=== PATIENT | male | born 2000 | race Caucasian/White ===

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

== ENCOUNTER 2020-08-04 07:08 | Emergency (ER) | payer MEDICAID ==
[~2020-08-04] VITALS: Ht 170.2 cm; Wt 77.3 kg
[2020-08-04 07:13] VITALS: BP 129/68
[2020-08-04] MEDS ORDERED: IBUPROFEN 600 MG TABLET PO ONE (07:45)
== END 2020-08-04 08:23 | disposition home or self-care (01) ==
LOC: EMS 07:08
DX: S89.92XA Unspecified injury of left lower leg, initial encounter (principal); F17.210 Nicotine dependence, cigarettes, uncomplicated; X58.XXXA Exposure to other specified factors, initial encounter; Y93.89 Activity, other specified; Y92.89 Other specified places as the place of occurrence of the external cause; Y99.8 Other external cause status
CPT/HCPCS: 29505; 99283

== ENCOUNTER 2020-12-14 11:53 | Emergency (ER) | payer MEDICAID ==
[~2020-12-14] VITALS: Ht 167.6 cm; Wt 90.0 kg
[2020-12-14 12:20] VITALS: BP 122/65
[2020-12-14 14:20] LABS: COVID AG,FIA SOURCE NASOPHARYNGEAL
== END 2020-12-14 15:24 | disposition home or self-care (01) ==
LOC: EMS 11:55
DX: J06.9 Acute upper respiratory infection, unspecified (principal); F17.210 Nicotine dependence, cigarettes, uncomplicated; Z20.822 Contact with and (suspected) exposure to COVID-19
CPT/HCPCS: 71046; 99284

== ENCOUNTER 2021-03-22 08:06 | Emergency (ER) | payer MEDICAID ==
[~2021-03-22] VITALS: Ht 167.6 cm; Wt 72.7 kg
[2021-03-22 08:09] VITALS: BP 141/82
[2021-03-22] MEDS ORDERED: IBUPROFEN 600 MG TABLET PO ONE (08:30)
== END 2021-03-22 09:41 | disposition home or self-care (01) ==
LOC: EMS 08:06
DX: S83.92XA Sprain of unspecified site of left knee, initial encounter (principal); F17.210 Nicotine dependence, cigarettes, uncomplicated; W19.XXXA Unspecified fall, initial encounter; Y93.67 Activity, basketball; Y92.89 Other specified places as the place of occurrence of the external cause; Y99.8 Other external cause status
CPT/HCPCS: 29505; 99283

== ENCOUNTER 2022-08-04 23:33 | Emergency (ER) | payer SELFPAY ==
[~2022-08-04] VITALS: Ht 170.2 cm; Wt 81.8 kg
[2022-08-04 23:34] VITALS: BP 127/87
[2022-08-05] MEDS ORDERED: HYDROCODONE/ACETAMINOPHEN 5-325 MG TABLET PO ONE (02:15)
== END 2022-08-05 04:19 | disposition home or self-care (01) ==
LOC: EMS 23:34
DX: S82.002A Unspecified fracture of left patella, initial encounter for closed fracture (principal); F17.210 Nicotine dependence, cigarettes, uncomplicated; W01.0XXA Fall on same level from slipping, tripping and stumbling without subsequent striking against object, initial encounter; Y93.89 Activity, other specified; Y92.89 Other specified places as the place of occurrence of the external cause; Y99.8 Other external cause status
CPT/HCPCS: 29505; 29530; 73700; 99284; 73562-TC; Z7502; Z7610

== ENCOUNTER 2022-08-18 20:38 | Emergency (ER) | payer SELFPAY ==
[2022-08-18] MEDS ORDERED: FentaNYL CITRATE PF 100 MCG/2 ML VIAL ONE (20:46)
[2022-08-18 20:53] VITALS: BP 155/107
[2022-08-18] MEDS ORDERED: FentaNYL CITRATE PF 100 MCG/2 ML VIAL IVP ONE ×2 (21:00→21:15)
[2022-08-18] MEDS ORDERED: SODIUM CHLORIDE 0.9% 1,000 ML IV ONE (21:15)
== END 2022-08-18 21:49 ==
LOC: EMS 20:39
DX: S21.112A Laceration without foreign body of left front wall of thorax without penetration into thoracic cavity, initial encounter (principal); F17.210 Nicotine dependence, cigarettes, uncomplicated; W26.9XXA Contact with unspecified sharp object(s), initial encounter; Y93.89 Activity, other specified; Y92.89 Other specified places as the place of occurrence of the external cause; Y99.8 Other external cause status
CPT/HCPCS: 99285; 96374; 71045; 96361; J3010